=== PATIENT | female | born 1990 | race Caucasian/White ===

== ENCOUNTER 2018-12-19 23:50 | Inpatient (IN) | payer SELFPAY ==
[2018-12-20] MEDS ORDERED: TERBUTALINE 1 MG/1 ML INJ SUB-Q PRN (01:49)
[2018-12-20] MEDS ORDERED: fentaNYL 100 MCG/2 ML INJ IV PRN (01:49)
[2018-12-20] MEDS ORDERED: AMPICILLIN/NS 2 GM/100 ML 2 GM/100 ML BAG IV ONE (01:49)
[2018-12-20] MEDS ORDERED: LIDOCAINE (2%) 20 MG/1 ML VIAL 20 ML MDV INFILTRATI ONE (01:49)
[2018-12-20] MEDS ORDERED: OXYTOCIN 20 UNIT/1000ML DRIP 20 UNITS/1,000 ML BAG IV SCH ×3 (02:00→17:00)
[2018-12-20] MEDS: LACTATED RINGERS 1,000 ML IV SCH ×2 (02:26→12:38)
[2018-12-20 02:27] LABS: Hemoglobin 12.4 gm/dl (10.1-14.3); Red Blood Count 4.06 M/mm3 (3.65-5.03)
[2018-12-20 02:28] LABS: Hematocrit 35.6 % (30.3-42.9); Mean Corpuscular HGB Conc 35 % (30-34); Mean Corpuscular Volume 88 fl (79-97); Platelet Count 184 K/mm3 (140-440); Red Cell Distribution Width 15.1 % (13.2-15.2)
--- NOTE | 2018-12-20 02:28 | History and Physical Report ---
History of Present Illness Date of examination: 12/20/18 Date of admission: 12/20/18 01:11 Chief complaint: Contractions History of present illness: 28 year old at 40 weeks, 2 days gestation presents with contractions. Patient denies LOF or VB. Pt. reports active movement. Patient denies headache, visual disturbance, nausea or vomiting, chest pain, shortness of breath, or abdominal pain. Patient received care at [facility] and she brings records with her. LMP unknown. EDC 12/18/18 (based on 7 week, 6 day US). significant for the following: low lying placenta which resolved by US done on 10/30/18, GBS positive. labs are as follows: O+, antibody screen negative, rubella immune, hepatitis B surface antigen negative, RPR nonreactive, HIV negative, gonorrhea negative, chlamydia negative, quad screen negative, 1 hour sugar test 124, GBS positive, quad screen negative, pap negative. 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 denies: smoking, alcohol abuse, prescription drug abuse, IV drug use - Obstetrical History Expected Date of Delivery: 12/18/18 Actual Gestation: 40 Week(s) 2 Day(s) : 1 Para: 0 Hx # Term Pregnancies: 0 Number of Pregnancies: 0 Spontaneous Abortions: 0 Induced : 0 Number of Living Children: 0 Medications and Allergies Allergies Allergy/AdvReac Type Severity Reaction Status Date / Time No Known Allergies Allergy Verified 12/20/18 00:32 Active Meds: Active Medications Fentanyl (Sublimaze) 100 mcg IV Q2H PRN PRN Reason: Labor Pain Oxytocin/Sodium Chloride (Pitocin/Ns 20 Unit/1000ml Drip) 20 units in 1,000 mls @ 125 mls/hr IV DIRECT VALE Lactated Ringer's (Lactated Ringers) 1,000 mls @ 125 mls/hr IV DIRECT VALE Ampicillin Sodium (Ampicillin/Ns 2 Gm/100 Ml) 2 gm in 100 mls @ 100 mls/hr IV ONCE ONE; Protocol Stop: 12/20/18 02:48 Ampicillin Sodium (Ampicillin/Ns 1 Gm/50 Ml) 1 gm in 50 mls @ 100 mls/hr IV Q4HR VALE; Protocol Terbutaline Sulfate (Brethine) 0.25 mg SUB-Q ONCE PRN PRN Reason: Hyperstimulation/Hypertonicity Review of Systems All systems: negative (contractions) - Vital Signs Vital signs: Vital Signs Pulse BP 94 H 133/95 12/20/18 00:25 12/20/18 00:25 Temp Pulse Resp BP Pulse Ox 98.4 F 90 139/94 12/20/18 00:54 12/20/18 02:16 12/20/18 02:16 - Physical Exam Cardiovascular: Regular rate, Normal S1, Normal S2 Lungs: Positive: Clear to auscultation Abdomen: Positive: normal appearance, soft. Negative: distention, tenderness, guarding, rigidity Genitourinary (Female): Positive: normal external genitalia, normal perenium. Negative: perineal/vulvar lesions (no lesions seen on careful exam with bright light upon admission) Vagina: Positive: normal moisture Uterus: Positive: enlarged (s=d) Anus/Rectum: Positive: normal perianal skin Extremities: Positive: other (2+ patellar reflexes), edema (edema of bilateral lower legs and feet; no edema of face or hands). Negative: tenderness - Obstetrical FHR: category 1 Uterine Contraction Monitor Mode: External Cervical Dilatation: 4 Cervical Effacement Percentage: 70 station: -3 Uterine Contraction Pattern: Regular Uterine Contraction Intensity: Mild Results All other labs normal. Assessment and Plan A: at 40 weeks, 2 days gestation. Labor. GBS positive. Elevated blood pressure. P: Admit. Continuous EFM. GBS prophylaxis. Preeclamptic labs. Labetalol 100 mg po BID. Serial BPs.
[2018-12-20 02:41] LABS: Alanine Aminotransferase 15 units/L (7-56)
[2018-12-20] MEDS ORDERED: OXYTOCIN DRIP 30 UNITS/500 ML BAG IV SCH (05:00)
[2018-12-20 05:19] LABS: Uric Acid 5.3 mg/dL (3.5-7.6)
[2018-12-20] MEDS: AMPICILLIN/NS 1 GM/50 ML 1 GM/50 ML BAG IV SCH ×2 (05:21→12:37)
--- NOTE | 2018-12-20 10:43 | Event Note ---
Date: 12/20/18 Patient is receiving Pitocin for augmentation of labor. Cervix is 5.5/80/-2 at last SVE 1 hour ago. Patient has requested epidural and she is receiving fluid bolus in preparation for epidural.
[2018-12-20] MEDS ORDERED: ONDANSETRON 4 MG/2 ML INJ IV ONE (11:26)
[2018-12-20] MEDS ORDERED: ePHEDrine SULFATE 50 MG/1 ML INJ IV PRN (11:57)
[2018-12-20] MEDS ORDERED: NALOXONE 2 MG/2 ML INJ IV PRN (11:57)
--- NOTE | 2018-12-20 11:59 | Anesthesia Consultation ---
Anesthesia Consult and Med Hx Date of service: 12/20/18 - Airway Anesthetic Teeth Evaluation: Good ROM Head & Neck: Adequate Mental/Hyoid Distance: Adequate Mallampati Class: Class II Intubation Access Assessment: Good - Pulmonary Exam CTA: Yes - Cardiac Exam Cardiac Exam: RRR - Pre-Operative Health Status ASA Pre-Surgery Classification: ASA2, Emergency Proposed Anesthetic Plan: Epidural - Pulmonary Hx Asthma: No COPD: No Hx Pneumonia: No - Cardiovascular System Hx Hypertension: No - Central Nervous System Hx Seizures: No Hx Psychiatric Problems: No - Endocrine Hx Renal Disease: No Hx End Stage Renal Disease: No Hx Hypothyroidism: No Hx Hyperthyroidism: No - Hematic Hx Anemia: No Hx Sickle Cell Disease: No - Other Systems Hx Alcohol Use: No
[2018-12-20] MEDS ORDERED: fentaNYL-BUPIV 2 MCG/ML-0.125% 200 MCG/100 ML BAG EPIDURAL SCH (12:00)
[2018-12-20] MEDS ORDERED: BUPIVACAINE/PF (0.25%) 2.5 MG/ML 10 ML VIAL INFILTRATI ONE ×2 (12:11→14:58)
[2018-12-20 13:33] LABS: Bilirubin,Urine NEG (Negative); Blood,Urine NEG (Negative); Color,Urine Straw (Yellow); Protein,Urine <15 mg/dL mg/dL (Negative); Urobilinogen,Urine < 2.0 mg/dL (<2.0)
[2018-12-20 13:35] LABS: WBC,Urine < 1.0 /HPF (0.0-6.0)
[2018-12-20] MEDS ORDERED: METOCLOPRAMIDE 10 MG/2 ML INJ IV ONE (14:40)
[2018-12-20] MEDS ORDERED: FAMOTIDINE 20 MG/2 ML INJ IV ONE (14:40)
[2018-12-20] MEDS ORDERED: BICITRA ORAL LIQD 30ML PO ONE (14:40)
--- NOTE | 2018-12-20 14:40 | Event Note ---
Date: 12/20/18 Variable FHR decelerations with rapid return to baseline, early FHR decelerations, and late FHR decelerations noted. SVE 7/80/-3; OP. Contractions every 2-3 minutes, moderate, and uterus palpates soft between contractions. RN thinks patient's water started leaking at 09:00 this morning (small amount and clear per RN). Patient positioned in lateral position and oxygen applied per face mask. Have consulted with Dr. Gray re: this patient and her slow progress in labor, position of baby, and FHR tracing. Dr. Gray states to get patient ready for section. Team notified and discussed with patient and S.O. that Dr. Gray recommends to deliver baby by section due to slow labor labor progress and FHR tracing.
[2018-12-20] MEDS ORDERED: ONDANSETRON 4 MG/2 ML INJ ONE (15:00)
[2018-12-20] MEDS ORDERED: LACTATED RINGERS 1,000 ML IV SCH (15:00)
[2018-12-20] MEDS ORDERED: DEXMEDETOMIDINE 200 MCG/2 ML VIAL IV ONE (15:00)
[2018-12-20] MEDS ORDERED: ceFAZolin/Water 2 GM/20 ML 2 GM/20 ML SYRINGE IV NR (15:00)
[2018-12-20] MEDS ORDERED: NALOXONE 0.4 MG/1 ML INJ IV PRN ×2 (15:12→16:35)
[2018-12-20] MEDS ORDERED: HYDROmorphone 1 MG/1 ML INJ IV PRN ×2 (15:12)
[2018-12-20] MEDS ORDERED: PROMETHAZINE 25 MG TAB PO PRN (15:12)
[2018-12-20] MEDS ORDERED: PROMETHAZINE 25 MG RECT SUPP PR PRN (15:12)
[2018-12-20] MEDS ORDERED: ONDANSETRON 4 MG/2 ML INJ IV PRN (15:12)
--- NOTE | 2018-12-20 15:12 | Anesthesia Day of Surgery ---
Anesthesia Day of Surgery - Day of Surgery Patient Examined: Yes Patient H&P Reviewed: Yes Patient is NPO: Yes
[2018-12-20] MEDS ORDERED: ceFAZolin/STERILE WATER 2 GM/20 ML SYRINGE IV ONE (15:41)
[2018-12-20] MEDS ORDERED: WATER FOR IRRIG STERILE 1,500 ML BOTTLE IR ONE (15:41)
[2018-12-20] MEDS ORDERED: SODIUM CHLORIDE 0.9% IRR 1,500 ML BOTTLE IR ONE (15:41)
[2018-12-20] MEDS ORDERED: fentaNYL 100 MCG/2 ML INJ ONE ×2 (15:46→16:13)
[2018-12-20] MEDS ORDERED: KETAMINE/STERILE WATER 50 MG/ML SYRINGE ONE (15:57)
[2018-12-20] MEDS ORDERED: MIDAZOLAM 2 MG/2 ML INJ ONE (16:03)
[2018-12-20] MEDS ORDERED: HYDROmorphone 1 MG/1 ML INJ ONE (16:03)
[2018-12-20] MEDS ORDERED: diphenhydrAMINE 50 MG/ML VIAL ONE (16:05)
[2018-12-20] MEDS ORDERED: KETOROLAC 30 MG/1 ML INJ ONE (16:05)
--- NOTE | 2018-12-20 16:32 | Operative Report ---
Operative Report Operative Report: Date of procedure: 12/20/2018 Pre-operative diagnosis: 1. Intrauterine at 40 2/7 weeks 2. Failu re to progress 3. Cephalopelvic Disproportion Post-operative diagnosis: Same Procedure name(s): Primary low transverse section Surgeon: Roland Gray MD Rn Cardiac: None Anesthesia: Epidural anesthesia by Hang Stern CRNA EBL: 400 mL's Findings: A 3750 gm male Apgars 8 at 1 minute and 9 at 5 minutes. Clear amniotic fluid. Normal uterus with normal tubes and ovaries bilaterally. Procedure: After the patient was prepped and draped in usual sterile fashion, and after a satisfactory level of epidural anesthesia was obtained, the skin knife was used to make a transverse skin incision. The incision was excised down to layer of the fascia, which was nicked in the midline and extended laterally using the Bovie cautery. The rectus muscles were dissected off the rectus fascia both superiorly and inferiorly. The rectus bellies in the midline, and the peritoneum was entered under direct visualization. The peritoneal incision was extended superiorly and inferiorly. A bladder flap was made and the bladder blade placed. The uterus was scored in a curvilinear linear fashion, entered in the midline revealing clear amniotic fluid. The infant's head was delivered onto the surgical field, and the oropharynx and nasopharynx were bulb suctioned. The rest of the infant's body was delivered, cord was doubly clamped and cut and the was handed to the waiting respiratory team. Cord blood was then obtained. The placenta was manually removed from the uterus and the uterus removed from its normal anatomical position. After gentle uterine lavage, the incision was inspected and found to be without extensions. It was then closed in 2 layers using 0 Vicryl suture in a running interlocking fashion, the second layer imbricating the first. After good hemostasis was achieved, copious amounts or irrigation was performed, and the gutters were suctioned free of blood and blood clots. The Tisseal sealant was sprayed across the uterine incision and excellent hemostasis was assured. The uterus was then returned to its normal anatomical position, and after excellent hemostasis assured, the peritoneum was re-approximated using 3-0 Vicryl suture in a running interlocking fashion, and then the rectus muscles were re-approximated using 3-0 Vicryl suture in a [id number] configuration. The fascia was then re- approximated using 0 Vicryl suture in running interlocking fashion. The subcutaneous layer was made hemostatic using Bovie cautery and re-approximated using 3-0 vicyl suture, then the skin edges re-approximated using 4-0 Vicryl suture in a sub-cuticular fashion. Patient tolerated the procedure well was transported to recovery in stable condition.
[2018-12-20] MEDS ORDERED: MAGNESIUM HYDROXIDE (MOM) ORAL LIQD UDC PO PRN (16:35)
[2018-12-20] MEDS ORDERED: ACETAMINOPHEN 325 MG TAB PO PRN (16:35)
[2018-12-20] MEDS ORDERED: WITCH HAZEL/ GLYCERIN PAD TP PRN (16:35)
[2018-12-20] MEDS ORDERED: LANOLIN/ZINC/DIMETHICONE (LANSINOH) 7 GM TP PRN (16:35)
[2018-12-20] MEDS ORDERED: SENNOSIDES 8.6 MG TAB PO PRN (16:35)
[2018-12-20] MEDS ORDERED: oxyCODONE /ACETAMINOPHEN 5-325MG TAB PO PRN (16:35)
[2018-12-20] MEDS ORDERED: SIMETHICONE 80 MG CHEW TAB PO PRN (16:35)
[2018-12-20] MEDS ORDERED: KETOROLAC 30 MG/1 ML INJ IV PRN (16:35)
[2018-12-20] MEDS ORDERED: HYDROcodone/ACETAMINOPHEN 5-325 MG TAB PO PRN (16:35)
[2018-12-20] MEDS: D5W/LACTATED RINGERS 1,000 ML IV SCH (20:49)
[2018-12-21] MEDS: ceFAZolin/NS 1 GM/50 ML 1 GM/50 ML BAG IV SCH ×2 (01:05→08:45)
[2018-12-21] MEDS: D5W/LACTATED RINGERS 1,000 ML IV SCH (04:22)
[2018-12-21] MEDS ORDERED: AMMONIA INHALANT IH ONE (05:40)
[2018-12-21] MEDS ORDERED: MEASLES, MUMPS & RUBELLA 12,500 UNIT/0.5 ML VACCINE SUB-Q ONE (06:00)
[2018-12-21] MEDS ORDERED: TETANUS,DIPH,PERTUSS(ACELL) VACCINE 0.5 ML SYRINGE IM ONE (06:00)
[2018-12-21 06:31] LABS: Hemoglobin 6.7 gm/dl (10.1-14.3)
[2018-12-21 06:52] LABS: Hematocrit 19.9 % (30.3-42.9)
[2018-12-21] MEDS ORDERED: SODIUM CHLORIDE 0.9% 500 ML 500 ML IV ONE (07:28)
--- NOTE | 2018-12-21 07:50 | Event Note ---
Date: 12/21/18 Patient with dizziness and mild tachycardia. Stat H&H ordered. Hemoglobin 6.7; hematocrit 19.9. 2 units of PRBCs ordered. Dr. Gary notified. Spoke with patient about blood transfusion. Patient consented to receive blood transfusion.
[2018-12-21] MEDS: FERROUS SULFATE 325 MG TAB PO SCH (09:37)
[2018-12-21] MEDS: PRENATAL VIT27-FE FUMARATE-FOLIC ACID VIT TAB PO SCH (09:37)
--- NOTE | 2018-12-21 11:31 | Progress Note ---
Assessment and Plan A: /postop day 1 S/P primary low transverse section. Severe anemia (symptomatic) secondary to and blood loss. P: Transfuse 2 units of PRBCs. Recheck H&H this evening. Advance diet as tolerated and when patient is passing gas. Patient to get help when getting out of bed until dizziness resolves. Subjective - Subjective Date of service: 12/21/18 Principal diagnosis: /postop day 1 S/P primary LTCS Interval history: /postop day 1 S/P primary low transverse section. Patient is doing well. Voiding without difficulty. Not passing gas yet. Ambulating well. Patient reported dizziness this morning and was noted to have mild tachycardia. Stat H&H revealed severe anemia and 2 units of PRBCs have been ordered. Patient denies headache, chest pain, cough, shortness of breath, nausea or vomiting, leg pain, or heavy vaginal bleeding. Patient reports: appetite normal, voiding normally, dizzy ambulation, pain well controlled, ambulating normally, no flatus, no bowel movement, no nauseated [place]: doing well Objective - Vital Signs Latest vital signs: Vital Signs Temp Pulse Resp BP BP BP Pulse Ox 12/21/18 08:55 99.0 F 102 H 18 92/50 97 12/21/18 07:10 110 H 90/51 98 12/21/18 05:10 98.8 F 105 H 18 98/61 98 12/20/18 22:50 98.0 F 115 H 18 108/75 99 12/20/18 18:05 97.4 F L 105 H 94/62 12/20/18 15:38 100 H 145/98 12/20/18 15:07 78 167/104 12/20/18 14:45 88 98 12/20/18 14:40 87 94 12/20/18 14:38 96 H 92 12/20/18 14:37 85 136/86 12/20/18 14:35 85 97 12/20/18 14:30 82 98 12/20/18 14:25 94 H 99 12/20/18 14:20 89 97 12/20/18 14:15 96 H 98 12/20/18 14:10 104 H 98 12/20/18 14:09 83 152/91 12/20/18 14:05 91 H 97 12/20/18 14:00 98 H 98 12/20/18 13:55 92 H 98 12/20/18 13:50 87 98 12/20/18 13:45 96 H 98 12/20/18 13:40 81 97 12/20/18 13:37 80 130/84 12/20/18 13:35 85 97 12/20/18 13:32 90 94 12/20/18 13:30 89 96 12/20/18 13:27 103 H 94 12/20/18 13:25 98 H 96 12/20/18 13:21 97 H 94 12/20/18 13:20 96 H 95 12/20/18 13:15 91 H 94 12/20/18 13:10 78 96 12/20/18 13:07 97 H 117/80 94 12/20/18 13:05 99.0 F 83 94 12/20/18 13:00 86 96 12/20/18 12:55 113 H 94 12/20/18 12:50 97 H 95 12/20/18 12:46 86 94 12/20/18 12:45 79 96 12/20/18 12:40 105 H 95 12/20/18 12:37 100 H 126/74 94 12/20/18 12:35 83 138/72 95 12/20/18 12:33 111 H 122/75 12/20/18 12:30 87 125/84 96 12/20/18 12:29 83 130/84 12/20/18 12:26 85 130/77 12/20/18 12:25 104 H 120/76 96 12/20/18 12:23 114 H 122/67 12/20/18 12:22 87 12/20/18 12:21 108 H 112/75 12/20/18 12:20 107 H 95 12/20/18 12:19 100 H 129/88 12/20/18 12:17 83 74 L 12/20/18 12:16 79 147/91 12/20/18 12:15 118 H 137/92 97 12/20/18 12:13 98.9 F 12/20/18 12:10 114 H 97 12/20/18 12:05 83 98 12/20/18 12:00 73 97 12/20/18 11:55 83 99 12/20/18 11:50 85 96 12/20/18 11:46 71 91 12/20/18 11:45 74 142/69 95 12/20/18 11:40 95 H 96 12/20/18 11:35 95 H 98 Intake and Output 12/20/18 12/21/18 12/21/18 23:59 07:59 15:59 Intake Total 993.75 Output Total 600 Balance 393.75 Intake: IV 993.75 ANCEF/NS 1 GM/50 ML 1 gm 50 In 50 ml @ 100 mls/hr IV Q8H VALE Rx#:[id number] D5lr 1,000 ml @ 125 mls/ 943.75 hr IV DIRECT VALE Rx#: [id number] Output: Urine 600 Indwelling Catheter 300 Uretheral (Méndez) 300 Other: Total, Output Amount 300 - Exam Cardiovascular: Present: Regular rate, Normal S1, Normal S2, No murmurs Lungs: Present: Clear to auscultation Abdomen: Present: normal appearance, soft, normal bowel sounds. Absent: distention, tenderness, guarding, rigidity Uterus: Present: normal, firm, fundal height below umbilicus. Absent: bogginess, tenderness Extremities: Present: normal. Absent: tenderness Incision: Present: normal, dry, intact, dressed - Labs Labs: Abnormal lab results 12/20/18 12/21/18 Range/Units 02:05 06:06 Hgb 6.7 L D (10.1-14.3) gm/dl Hct 19.9 L* D (30.3-42.9) % Crossmatch See Detail
[2018-12-21] MEDS: IBUPROFEN 800 MG TAB PO PRN (18:22)
[2018-12-22 00:57] LABS: Hemoglobin 8.9 gm/dl (10.1-14.3)
--- NOTE | 2018-12-22 09:59 | Progress Note ---
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 Progress Note Patient reports: appetite normal, voiding normally, pain well controlled, flatus, ambulating normally, no dizzy ambulation, no bowel movement : doing well, other (breast and bottle feeding) Objective - Vital Signs Latest vital signs: Vital Signs Temp Pulse Resp BP BP Pulse Ox 12/22/18 07:59 99.2 F 102 H 18 131/89 12/21/18 23:30 98.6 F 74 18 111/78 12/21/18 18:54 100.9 F H 124 H 20 124/85 99 12/21/18 18:22 18 12/21/18 18:20 98.1 F 119 H 18 116/86 100 12/21/18 17:45 99.1 F 112 H 18 119/77 100 12/21/18 17:20 99.1 F 113 H 18 106/71 100 12/21/18 16:49 98.2 F 107 H 18 104/68 98 12/21/18 14:16 98.6 F 113 H 18 102/58 98 12/21/18 13:40 98.3 F 121 H 18 93/58 98 12/21/18 13:10 98.8 F 122 H 20 99/57 98 12/21/18 12:40 98.5 F 114 H 18 107/71 100 12/21/18 12:37 18 12/21/18 12:10 98.6 F 110 H 18 101/63 99 12/21/18 11:48 99.4 F 114 H 18 108/70 99 Intake and Output 12/21/18 12/22/18 12/22/18 23:59 07:59 15:59 Intake Total 0 780 Output Total 800 Balance -800 780 Intake: Oral 480 Intake, Free Water 300 Blood Product 0 Leukoreduced Red Blood 0 Cells Unit [id number] Leukoreduced Red Blood 0 Cells Unit [id number] Output: Urine 800 Void 800 Other: Total, Intake Amount 480 Total, Output Amount 800 # Voids Void 1 1 - Exam Cardiovascular: Present: Regular rate Lungs: Present: Clear to auscultation, Normal air movement Abdomen: Present: normal appearance, soft Vulva: both: normal Uterus: Present: normal, firm, fundal height below umbilicus Extremities: Present: normal Incision: Present: normal, dry, intact, other (steri strips in place) Comments: scant lochia - Labs Labs: Abnormal lab results 12/20/18 12/22/18 Range/Units 02:05 00:36 Hgb 8.9 L (10.1-14.3) gm/dl Hct 26.0 L D (30.3-42.9) % Crossmatch See Detail
[2018-12-22] MEDS: FERROUS SULFATE 325 MG TAB PO SCH (10:01)
[2018-12-22] MEDS: PRENATAL VIT27-FE FUMARATE-FOLIC ACID VIT TAB PO SCH (10:01)
--- NOTE | 2018-12-22 10:05 | Discharge Summary ---
Providers - Providers Date of Admission: 12/20/18 01:11 Date of discharge: 12/23/18 Attending physician: PARVIZ FOWLER MD Primary care physician: PARVIZ FOWLER MD Hospitalization Reason for admission: active labor, IUP at term Delivery: Procedure: primary low transverse Episiotomy: none Laceration: none Other procedures: none complications: transfusion Discharge diagnosis: IUP at term delivered baby: male Hospital course: Complicated by severe anemia; s/p blood transfusion. Condition at discharge: Stable Disposition: DC-01 TO HOME OR SELFCARE - Discharge Diagnoses (1) S/P primary low transverse Status: Acute (2) Anemia due to blood loss, acute Status: Acute Comment: Asymptomatic Continue iron therapy Eat iron-rich foods Plan - Discharge Medications Prescriptions: Ferrous Sulfate [Feosol 325 MG tab] 325 mg PO BID #60 tablet Ibuprofen [Motrin] 800 mg PO Q8HR PRN #30 tablet PRN Reason: Pain, Mild (1-3) HYDROcodone/APAP 5-325 [[place] 5/325] 1 each PO Q6HR PRN #30 tablet PRN Reason: Pain Vit-Fe Fumar-FA [ Vitamin] 1 tab PO QDAY #30 tablet - Provider Discharge Summary Activity: routine, no sex for 6 weeks, no heavy lifting 4 weeks, no strenuous exercise Diet: routine Instructions: routine Additional instructions: [] Smoking cessation referral if applicable(refer to patient education folder for contact #) [] Refer to [facility] Booklet Call your doctor immediately for: * Fever > 100.5 * Heavy vaginal bleeding ( >1 pad per hour) * Severe persistent headache * Shortness of breath * Reddened, hot, painful area to leg or breast * Drainage or odor from incision. * Keep incision clean and dry at all times and follow doctor's instructions regarding bathing/showering - Follow up plan Follow up: PARVIZ FOWLER MD [Primary Care Provider] - 7 Days (Follow-up at [facility] as needed or in 1 week for incision check) Forms: [facility] Discharge Summary
[2018-12-22] MEDS: IBUPROFEN 800 MG TAB PO PRN (10:11)
[2018-12-23] MEDS: IBUPROFEN 800 MG TAB PO PRN ×2 (00:29→06:14)
[2018-12-23] MEDS: PRENATAL VIT27-FE FUMARATE-FOLIC ACID VIT TAB PO SCH (10:28)
[2018-12-23] MEDS: FERROUS SULFATE 325 MG TAB PO SCH (10:28)
[2018-12-23 13:08] VITALS: BP 122/97
== END 2018-12-23 14:46 | disposition home or self-care (01) | DRG 787 ==
LOC: TRG 23:50 → LD 12-20 01:11 → OB 12-20 19:58
PROVIDERS: ADMIT Obstetrics & Gynecology; ATTEND Obstetrics & Gynecology
PROC: 10D00Z1 Extraction of Products of Conception, Low, Open Approach (ICD-10-PCS; principal; 2018-12-20)
PROC: 3E0234Z Introduction of Serum, Toxoid and Vaccine into Muscle, Percutaneous Approach (ICD-10-PCS; 2018-12-21)
PROC: 30233N1 Transfusion of Nonautologous Red Blood Cells into Peripheral Vein, Percutaneous Approach (ICD-10-PCS; 2018-12-21)
DX: O99.824 Streptococcus B carrier state complicating childbirth (principal); D62 Acute posthemorrhagic anemia; Z3A.40 40 weeks gestation of pregnancy; Z37.0 Single live birth; Z23 Encounter for immunization; Z82.49 Family history of ischemic heart disease and other diseases of the circulatory system; O76 Abnormality in fetal heart rate and rhythm complicating labor and delivery; O33.8 Maternal care for disproportion of other origin; O99.89 Other specified diseases and conditions complicating pregnancy, childbirth and the puerperium; O90.81 Anemia of the puerperium; R00.0 Tachycardia, unspecified
CPT/HCPCS: 36415; 81001; 82565; 83615; 84450; 84460; 84550; 85014; 85018; 85027; 86850; 86900; 86901; 86920; G0378; J0290; J0690; J1170; J1200; J1885; J2250; J2405; J2590; J2765; J3010; J3490; J7040; J7120; J7121; P9016